=== PATIENT | female | born 1990 | race Caucasian/White ===

== ENCOUNTER 2017-08-17 08:23 | Outpatient (CLI) | payer BC ==
[2017-08-17 09:40] LABS: Hemoglobin 13.4 g/dL (12.0-16.0)
[2017-08-17 09:47] LABS: BHCG - Serum Negative (NEGATIVE); Pregs Control Bar Appear? YES (CONTROL BAR)
[2017-08-17 09:48] LABS: Pregs Control Background? CLEAR/WHITE (CLR/WHITE)
== END 2017-08-17 08:24 | disposition home or self-care (01) ==
LOC: LABBT 08:23
PROVIDERS: ATTEND Orthopaedic Surgery
DX: Z01.812 Encounter for preprocedural laboratory examination (principal); S83.511A Sprain of anterior cruciate ligament of right knee, initial encounter
CPT/HCPCS: 84703; 85014; 85018

== ENCOUNTER 2017-08-18 06:32 | Day surgery (SDC) | payer BC ==
[2017-08-17 08:43] VITALS: BMI 27.4
[2017-08-18] MEDS ORDERED: Midazolam HCl 2 mg/2 ml Vial ONE (07:20)
[2017-08-18] MEDS ORDERED: Dexamethasone 4 mg/ml Vial ONE (07:20)
[2017-08-18] MEDS ORDERED: Morphine 4 MG/ML VIAL ONE (07:20)
[2017-08-18] MEDS ORDERED: Scopolamine 1.5 mg/72 hour Patch ONE (07:36)
[2017-08-18] MEDS ORDERED: CEFAZOLIN/Water 2 GM/20 ML SYRINGE ONE (07:36)
[2017-08-18] MEDS ORDERED: Lidocaine 1% PF 5 ML VIAL ONE (07:59)
[2017-08-18] MEDS ORDERED: Ondansetron HCl/PF 4 MG/2 ML Vial ONE (07:59)
[2017-08-18] MEDS ORDERED: Metoclopramide HCl 10 MG/2 ML VIAL ONE ×2 (07:59→10:27)
[2017-08-18] MEDS ORDERED: diphenhydrAMINE 50 MG/ML VIAL ONE ×2 (07:59→12:15)
[2017-08-18] MEDS ORDERED: Dexamethasone 20 MG/5 ML VIAL ONE (07:59)
[2017-08-18] MEDS ORDERED: PROPOFOL 200 MG/20 ML VIAL ONE (07:59)
[2017-08-18] MEDS ORDERED: Fentanyl 250 MCG/5 ML VIAL ONE ×2 (08:31→11:02)
--- NOTE | 2017-08-18 09:13 | HP ---
CHIEF COMPLAINT: Right knee pain. HISTORY OF PRESENT ILLNESS: Ms. Fontaine is a 26-year-old female who sustained an injury skiing on 06/2017. The patient had a pop and noticed significant swelling was unable to ambulate well. Pain i s anywhere from 0 to 7/10. The patient has no history of surgery or injury to her knee pain. Signi ficant with MRI showing an ACL tear. PAST MEDICAL HISTORY: Anemia, seasonal allergies. PAST SURGICAL HISTORY: Tonsillectomy, wisdom teeth extraction. MEDICATIONS: Microgestin/norethindrone control. ALLERGIES: No known drug allergies. SOCIAL HISTORY: The patient is a nonsmoker. Occasional alcohol. The patient works in [place]. REVIEW OF SYSTEMS: Noncontributory. PHYSICAL EXAMINATION: GENERAL: Oriented female in no acute distress. HEENT: Normocephalic, atraumatic. Extraocular muscles intact. HEART: Regular rate. LUNGS: Unlabored bilateral symmetric chest rise. ABDOMEN: Soft, nontender. EXTREMITIES: The patient's right lower extremity shows positive anterior drawer. The patient has a 1-2+ anterior laxity, positive Margy's, the patient is neurovascularly intact, negative Homans'. Full range of motion. LABORATORY AND X-RAY FINDINGS: MRI of her knee showed a pivot shift bone contusion, no meniscal tear s, no full thickness cartilage defects. IMPRESSION: Anterior cruciate ligament tear. ASSESSMENT AND PLAN: The patient will be taken for a right ACL reconstruction, bone patella bone gra ft. The patient understands the risks and benefits of surgery. She understands the risk of DVT. I discussed her taking an aspirin given she is on control. I discussed risks of surgery to inclu de pain, scar, bleeding, infection, damage to vital structures, decreased range of motion or strength , failure of procedure, continued pain, failure of graft, loss of life or limb. She understands risk s and benefits and elected to proceed.
[2017-08-18] MEDS ORDERED: Ketorolac Tromethamine 30 MG/ML VIAL ONE (14:15)
[2017-08-18] MEDS ORDERED: HYDROcodone/Acetaminophen 5/325 mg Tablet ONE (14:15)
[2017-08-18] MEDS ORDERED: Sodium Chloride 0.9% 10 ML ONE (14:25)
[2017-08-18] MEDS ORDERED: Bupivacaine HCl 0.5%/Epinephrine 1:200,000/PF 30 ml Vial ONE (14:32)
--- NOTE | 2017-08-18 14:41 | OP ---
DATE OF PROCEDURE: 08/18/2017 PREOPERATIVE DIAGNOSIS: Right anterior cruciate ligament tear. POSTOPERATIVE DIAGNOSIS: Right anterior cruciate ligament tear. PROCEDURE PERFORMED: Right ACL reconstruction, bone tendon bone graft. STAFF: Zion Hong M.D. INTAKE SPECIALIST: ECOH Brown ANESTHESIA: Tomy. The patient received a LMA single-shot femoral. ESTIMATED BLOOD LOSS: 75 mL. TOURNIQUET TIME: 75 minutes at 300 mmHg. ANTIBIOTICS: Ancef. IMPLANTS: Arthrex 7.0 x 25 mm screw x2. COMPLICATIONS: None. HISTORY OF PRESENT ILLNESS: Ms. Fontaine is a pleasant 26-year-old female who lives in [place], was sk iing in June and injured her knee. MRI showed pivot shift bone contusion high grade tear. The p atient had symptomatic instability on exam as well as on anesthesia. I discussed with the patient th e risks and benefits of right ACL reconstruction tendon bone graft to include pain, scar, bleeding, i nfection, damage to vital structures, decreased range of motion, strength, continued pain despite int ervention, loss of limb, risk of blood clot, loss of life or limb. The patient understood the risks and benefits and elected to proceed. PROCEDURE IN DETAIL: A timeout was performed designating the patient's right lower extremity as the operative site. Based on site, consent, marking, after completion of timeout, the patient's right lo wer extremity was prepped and draped in a sterile fashion. She had tourniquet applied. The tourniqu et was brought up and was left up for 75 minutes. Incision was made midline down through skin to the patellar tendon. It was about a 34 mm tendon. I took a 10 mm graft with a 9 mm plug and an [address] ug respectively about 25 and 25 mm. After completing this, I closed with 0 Vicryl. We then moved int o the scope, placed the anterolateral portal, it was an anterior lateral portal and anteromedial port al under direct visualization. I debrided off the fat pad to expose, I found the ACL which was a hig h grade tear with some pull off of the femoral origin. The patient had symptomatic and obvious Lachm an's in the anterior drawer. We then completed the removal of the ACL, looked in the medial lateral gutter, I saw no meniscus tears, no patellofemoral changes. I looked in the medial lateral compartme nt and saw no meniscal tears. We then proceeded with our ACL. We did our notchplasty, placed our 6 mm over the top guide at about the 10:30 position, drilled in high flexed position through an anterom edial portal placement, after placement of this removed the bone graft from back to our tibial insert ion. We tried to place in the posterior aspect of the tibial footprint that was remaining. We place d an 8 mm femoral tunnel and 9 mm tibial tunnel. At completion of this, we completed all the debris, made sure there was no bone dust in the knee joint, washed out the joint and cleaned up all the soft tissue, so we had a direct line of action for our graft. We then passed our graft which had 1 femor al suture and 3 in the tibia. We passed the graft and placed wire, placed our 7 x 25 mm screw in the femur, which had good tension. We then pulled it, cycled the knee and under almost about 10 d egrees of flexion we placed the tibial interference screw. The patient had a good stable drawer. I took final pictures, washed, closed. Took our remnant bone graft that we had and got the patella, cl osed the peritenon with 0 and 2-0 as well as 2-0 skin and osiel. The patient will be weightbearing as tolerated, hinge knee brace, open range of motion. Discussed sherwin hoffman aspirin postoperatively. She will be sent home with hydrocodone. She has a block for pain cont rol. I will see her back in clinic in about 10-14 days.
== END 2017-08-18 15:50 | disposition home or self-care (01) ==
LOC: SDC 06:32
PROVIDERS: ATTEND Orthopaedic Surgery
PROC: 0MRN47Z Replacement of Right Knee Bursa and Ligament with Autologous Tissue Substitute, Percutaneous Endoscopic Approach (ICD-10-PCS; principal; 2017-08-18)
DX: S83.511A Sprain of anterior cruciate ligament of right knee, initial encounter (principal); D53.9 Nutritional anemia, unspecified; J45.909 Unspecified asthma, uncomplicated; Z79.3 Long term (current) use of hormonal contraceptives; Y93.23 Activity, snow (alpine) (downhill) skiing, snowboarding, sledding, tobogganing and snow tubing
CPT/HCPCS: 96374; 96375; C1713; G8978-GP-CI; G8979-GP-CI; G8980-GP-CI; J0670; J1100; J1200; J1885; J2001; J2250; J2270; J2405; J2704; J2765; J3010